=== PATIENT | female | born 1935 | race Caucasian/White ===

== ENCOUNTER 2017-02-03 09:45 | Day surgery (SDC) | payer MEDICARE, OTHER ==
[~2017-02-03 09:45] MED LIST: CHONDR SU A NA/HYALUR INTRAOC KIT (SURGICARE) ONE; FENTANYL CITRATE INJ/PF 100 MCG/2 ML AMPUL ONE; KETOROLAC TROMETHAMINE 0.45% 4 DROP/0.4 ML DROPERETTE OS PRN; LIDOCAINE 1% INJ-PF (10 MG/ML) 30 ML SDV ONE; MIDAZOLAM 2 MG/2 ML INJ ONE; PHENYLEPHRINE/KETOROLAC 1%-0.3% 4 ML VIAL ONE
[2017-02-03] MEDS ORDERED: FENTANYL CITRATE INJ/PF 100 MCG/2 ML AMPUL ONE (10:09)
[2017-02-03] MEDS ORDERED: MIDAZOLAM 2 MG/2 ML INJ ONE (10:09)
[2017-02-03] MEDS: CYCLOPENTOLATE 0.2%/PHENYLEPHRINE 1% OPH SOLN 2 ML OS PRN ×3 (10:10→10:28)
[2017-02-03] MEDS: TROPICAMIDE 1% OPH SOLN 3 ML OS PRN ×3 (10:10→10:28)
[2017-02-03] MEDS: TETRACAINE HCL 0.5% OPH SOLN 2 ML OS PRN ×3 (10:10→10:41)
[2017-02-03] MEDS: BESIFLOXACIN HCL 0.6% OPH SUSP 5 ML BOTTLE OS PRN ×3 (10:10→11:15)
--- NOTE | 2017-02-04 08:08 | [facility]GICARE OPERATIVE REPORT E ---
[facility] NAME: MIRELLA NICHOLS AGE: 81Y DATE OF SURGERY: 02/03/2017 ROOM: PREOPERATIVE DIAGNOSES: 1. Cataract, left eye. 2. Pupil myosis, left eye. POSTOPERATIVE DIAGNOSES: 1. Cataract, left eye. 2. Pupil myosis, left eye. OPERATION: Complex cataract extraction with the use of Malyugin ring. SURGEON: ELDER THOMPSON M.D. ANESTHESIA: Topical. PROCEDURE: After obtaining appropriate consent, the patient's left eye was prepped and draped in sterile fashion as well as the surgeon in a sterile manner and cataract surgery was started. First a paracentesis blade was used to make a small side-port incision. Viscoelastic was used to inflate the anterior chamber. Next a 2.4 mm incision was made with the paracentesis blade. A continuous capsulorrhexis incision was made using a cystotome and Utrata forceps. Following this hydrodissection was carried out to make the lens fully loose and mobile and it was rotated 90 degrees. Following this, a fekvxm-nqf-dcyszuc technique was used to phacoemulsify the lens with a CDE of 24.43. The remaining cortex was removed with irrigation/aspiration. Provisc was instilled into the capsular bag to inflate the bag. A SN60WF, 22.5 diopter lens was placed. The remaining viscoelastic material was removed with irrigation/aspiration. Following this, a 10-0 nylon suture was used to close the incision and it was found to be watertight. Vigamox was instilled in the eye and a protective shield was placed over the eye. The patient returned to the postoperative recovery in stable condition. Prior to making the capsulorrhexis, a Malyugin ring was inserted due to poor pupillary dilation. This was removed at the end of the case. DICTATING PHYSICIAN: ELDER THOMPSON M.D. [id number] PHY#: [id number] ID: [id number] JOB#: [id number] ACCT: [id number] cc:ELDER THOMPSON M.D. >
--- NOTE | 2017-02-04 08:13 | SURGICARE DISCHARGE SUMMARY E ---
[facility] Discharge Summary NAME: MIRELLA NICHOLS AGE: 81Y ADMITTED: 02/03/2017 DISCHARGED: 02/03/2017 HISTORY: This is an 81-year-old female who underwent complex cataract extraction with IOL of the left eye. DIAGNOSES: 1. Cataract, left eye. 2. Pupil myosis of the left eye requiring a Malyugin ring. HOSPITAL COURSE: Patient underwent surgery because she was having difficulty reading small print. DISCHARGE INSTRUCTIONS: She should be on a regular diet. No bending at her waist, no heavy lifting. She should use her Besivance, Ilevro, and Durezol at 3 p.m. and 8 p.m. and sleep with a rigid shield, and I will see her for one day postoperative tomorrow. DICTATING PHYSICIAN: ELDER THOMPSON M.D. [id number] PHY#: [id number] ID: [id number] JOB#: [id number] ACCT: [id number] cc:ELDER THOMPSON M.D. >
== END 2017-02-03 12:04 | disposition home or self-care (01) ==
LOC: SC 09:45
PROVIDERS: ATTEND Internal Medicine
PROC: 08RK3JZ Replacement of Left Lens with Synthetic Substitute, Percutaneous Approach (ICD-10-PCS; principal; 2017-02-03 11:00)
DX: H25.12 Age-related nuclear cataract, left eye (principal); H57.03 Miosis; I10 Essential (primary) hypertension; E78.00 Pure hypercholesterolemia, unspecified; M19.90 Unspecified osteoarthritis, unspecified site; E11.9 Type 2 diabetes mellitus without complications; G47.30 Sleep apnea, unspecified; I25.2 Old myocardial infarction; Z79.4 Long term (current) use of insulin; Z87.440 Personal history of urinary (tract) infections
CPT/HCPCS: 66982; 82962; V2632; J2250; J3490 ×2; A9270; J3010; C9447; 142

== ENCOUNTER 2019-03-06 14:16 | Emergency (ER) | payer MEDICARE, OTHER ==
[2019-03-06] MEDS ORDERED: NORMAL SALINE 1000 ML 1,000 ML IV ONE (15:36)
[2019-03-06] MEDS ORDERED: ONDANSETRON HCL INJ/PF 4 MG/2 ML SDV IV ONE (15:37)
[2019-03-06] MEDS ORDERED: MORPHINE SULFATE 10 MG/ML INJ IV ONE (15:37)
[2019-03-06 16:08] LABS: ABSOLUTE EOSINOPHILS # (AUTO) 0.1 10^3/uL (0.0-0.6); ABSOLUTE LYMPHOCYTES (AUTO) 1.3 10^3/uL (0.5-4.7); ABSOLUTE MONOCYTES (AUTO) 0.8 10^3/uL (0.1-1.4); ABSOLUTE NEUT (AUTO) 5.3 10^3/uL (1.7-8.2); BASOPHILS % (AUTO) 0.5 % (0-2); EOSINOPHILS % (AUTO) 0.9 % (0-6); HEMATOCRIT 40.7 % (36.0-47.0); HEMOGLOBIN 13.7 g/dL (12.0-15.5); LYMPHOCYTES % (AUTO) 17.3 % (13-45); MEAN CORPUSCULAR HEMOGLOBIN 31.1 pg (27.0-33.4); MEAN CORPUSCULAR HGB CONC 33.7 g/dL (32.0-36.0); MEAN CORPUSCULAR VOLUME 92 fl (80-97); MONOCYTES % (AUTO) 11.2 % (3-13); PLATELET COUNT 242 10^3/uL (150-450); RED CELL DISTRIBUTION WIDTH 14.1 % (11.5-14.0); SEGMENTED NEUTROPHILS % (AUTO) 70.1 % (42-78); TOTAL CELLS COUNTED % (AUTO) 100 %; WHITE BLOOD COUNT 7.5 10^3/uL (4.0-10.5)
[2019-03-06 16:22] LABS: ALBUMIN 3.7 g/dL (3.5-5.0); ALKALINE PHOSPHATASE 343 U/L (38-126); ANION GAP 10 (5-19); ASPARTATE AMINO TRANSFERASE 26 U/L (14-36); BILIRUBIN,DIRECT 0.2 mg/dL (0.0-0.4); BILIRUBIN,TOTAL 0.8 mg/dL (0.2-1.3); BLOOD UREA NITROGEN 21 mg/dL (7-20); CALCIUM 9.3 mg/dL (8.4-10.2); CARBON DIOXIDE 26 mmol/L (22-30); CHLORIDE 95 mmol/L (98-107); GLUCOSE 143 mg/dL (75-110); POTASSIUM 4.7 mmol/L (3.6-5.0); TOTAL PROTEIN 6.4 g/dL (6.3-8.2)
--- NOTE | 2019-03-06 17:57 | ER Document Report ---
ED Fall - General Chief Complaint: Nausea Stated Complaint: PAIN FROM FALL Time Seen by Provider: 03/06/19 15:17 Primary Care Provider: LALIT SAMAYOA MD [Primary Care Provider] - Follow up as needed TRAVEL OUTSIDE OF THE [place] IN LAST 30 DAYS: No - HPI Notes: [facility]. Patient has been at the facility for proxy 1 month. She states that she went there after a fall at home. She states after the fall at home she was in such severe pain in her coccyx and low back area but she was not able to take care of herself so she has been staying there. Apparently the staff there states that over the weekend patient was not eating well and they are worried about her having weight loss and deterioration. So they asked her to come the emergency department for evaluation. She states she also has a history of gallstones and intermittently causing some problems and she feels lately that they have been causing pain which is why she has not been eating. She states the pain in her lower back and sacral area is constant and worse with movement. It radiates into both legs. It is better with rest. It is a sharp pain and it is moderate to severe. She has some upper abdominal vague discomfort as well. - Related data Allergies/Adverse Reactions: No Known Allergies Allergy (Verified 02/03/17 10:18) Past Medical History - General Information source: Patient - Social History Smoking Status: Never Smoker Frequency of alcohol use: None Drug Abuse: None Family History: Reviewed & Not Pertinent Patient has suicidal ideation: No Patient has homicidal ideation: No - Past Medical History Cardiac Medical History: Reports: Hx Atrial Fibrillation - Paroxysmal atrial fibrillation, Hx Congestive Heart Failure, Hx Heart Attack - 01/2013, Hx Hypercholesterolemia, Hx Hypertension - medicated Pulmonary Medical History: Denies: Hx Asthma, Hx Tuberculosis Neurological Medical History: Denies: Hx Cerebrovascular Accident, Hx Seizures Endocrine Medical History: Reports: Hx Diabetes Mellitus Type 2 Renal/ Medical History: Reports: Hx Renal Insufficiency GI Medical History: Denies: Hx Hepatitis, Hx Hiatal Hernia, Hx Ulcer Musculoskeletal Medical History: Reports Hx Arthritis Psychiatric Medical History: Reports: Hx Anxiety Denies: Hx Depression Infectious Medical History: Denies: Hx Hepatitis Past Surgical History: Reports: Hx Cardiac Surgery - 03-19-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 Denies: Hx Mastectomy - Immunizations Hx Diphtheria, Pertussis, Tetanus Vaccination: Yes Review of Systems - Review of Systems Constitutional: Malaise, Weakness. denies: Chills, Fever Cardiovascular: denies: Chest pain, Palpitations Respiratory: denies: Cough, Short of breath -: Yes All other systems reviewed and negative Physical Exam - Vital signs Vitals: Temp Pulse Resp BP Pulse Ox 97.7 F 80 16 115/63 96 03/06/19 14:50 03/06/19 14:50 03/06/19 14:50 03/06/19 14:50 03/06/19 14:50 Interpretation: Normal - General General appearance: Appears well, Alert In distress: None - HEENT Head: Normocephalic, Atraumatic Eyes: Normal Pupils: PERRL - Respiratory Respiratory status: No respiratory distress Chest status: Nontender Breath sounds: Normal Chest palpation: Normal - Cardiovascular Rhythm: Regular Heart sounds: Normal auscultation Murmur: No - Abdominal Inspection: Normal Distension: Distended Bowel sounds: Normal Tenderness: Tender - Abdomen is diffusely tender to palpation. There is no rebound or guarding. Organomegaly: No organomegaly - Back Back: Normal, Nontender - Extremities General upper extremity: Normal inspection, Nontender, Normal color, Normal ROM, Normal temperature General lower extremity: Normal inspection, Nontender, Normal color, Normal ROM, Normal temperature, Normal weight bearing. No: Eben's sign - Neurological Neuro grossly intact: Yes Cognition: Normal Orientation: AAOx4 [place] Coma Scale Eye Opening: Spontaneous Zo Coma Scale Verbal: Oriented [place] Coma Scale Motor: Obeys Commands Zo Coma Scale Total: 15 Speech: Normal Motor strength normal: LUE, RUE, LLE, RLE Sensory: Normal - Psychological Associated symptoms: Normal affect, Normal mood - Skin Skin Temperature: Warm Skin Moisture: Dry Skin Color: Normal Course - Re-evaluation Re-evalutation: 03/06/19 18:48 at this time ua, ct, xray pending. Dr. nguyen will follow up and determine dispo - Vital Signs Vital signs: Temp Pulse Resp BP Pulse Ox 97.7 F 80 16 115/63 96 03/06/19 14:50 03/06/19 14:50 03/06/19 14:50 03/06/19 14:50 03/06/19 14:50 - Laboratory Result Diagrams: 03/06/19 14:42 03/06/19 14:42 Laboratory results interpreted by me: 03/06/19 03/06/19 14:42 14:42 RDW 14.1 H Sodium 131.4 L Chloride 95 L BUN 21 H Creatinine 1.34 H Est GFR ( Amer) 46 L Est GFR (MDRD) Non-Af 38 L Glucose 143 H Alkaline Phosphatase 343 H Discharge - Discharge Clinical Impression: Sacral pain Abdominal pain Qualifiers: Abdominal location: upper abdomen, unspecified Qualified Code(s): R10.10 - Upper abdominal pain, unspecified Condition: Stable Disposition: OTHER Referrals: LALIT SAMAYOA MD [Primary Care Provider] - Follow up as needed
--- NOTE | 2019-03-06 18:38 | RADIOLOGY REPORT (SQ) ---
EXAM DESCRIPTION: SACRUM AND COCCYX COMPLETED DATE/TIME: 03/06/2019 5:24 pm REASON FOR STUDY: abd pain vomiting COMPARISON: None. NUMBER OF VIEWS: Three views. TECHNIQUE: AP, lateral, and tilt views of the sacrum and coccyx. LIMITATIONS: None. FINDINGS: MINERALIZATION: Osteopenia. BONES: No acute fracture or dislocation. No worrisome bone lesions. SOFT TISSUES: No soft tissue swelling. No foreign body. OTHER: No other significant finding. IMPRESSION: NEGATIVE STUDY OF THE SACRUM AND COCCYX. TECHNICAL DOCUMENTATION: JOB ID: [id number] [employer]- All Rights Reserved Reading location - IP/workstation name: [email or web address]
--- NOTE | 2019-03-06 18:42 | RADIOLOGY REPORT (SQ) ---
EXAM DESCRIPTION: CT ABD/PELVIS NO ORAL OR IV COMPLETED DATE/TIME: 03/06/2019 5:46 pm REASON FOR STUDY: abd pain vomiting COMPARISON: None. TECHNIQUE: CT scan of the abdomen and pelvis performed without intravenous or oral contrast. Images reviewed with lung, soft tissue, and bone windows. Reconstructed coronal and sagittal MPR images revi ewed. All images stored on PACS. All CT scanners at this facility use dose modulation, iterative reconstruction, and/or weight based d osing when appropriate to reduce radiation dose to as low as reasonably achievable (ALARA). [facility]: Dose Right [facility]: CareDose [facility]: Dose Right [facility]: Teradose 4D [facility]: Smart [employer] RADIATION DOSE: CT Rad equipment meets quality standard of care and radiation dose reduction techniq ues were employed. CTDIvol: 17.5 mGy. DLP: 1003 mGy-cm.mGy. LIMITATIONS: None. FINDINGS: LOWER CHEST: No significant findings. No nodules or infiltrates. NON-CONTRASTED LIVER, SPLEEN, ADRENALS: Evaluation limited by lack of IV contrast. No identified sign ificant masses. PANCREAS: No masses. No peripancreatic inflammatory changes. GALLBLADDER: Small gallstones are present. There is no ductal dilatation. RIGHT KIDNEY AND URETER: No suspicious masses. Assessment limited by lack of IV contrast. No signif icant calcifications. No hydronephrosis or hydroureter. LEFT KIDNEY AND URETER: No suspicious masses. Assessment limited by lack of IV contrast. No signifi cant calcifications. No hydronephrosis or hydroureter. AORTA AND RETROPERITONEUM: No aneurysm. No retroperitoneal masses or adenopathy. BOWEL AND PERITONEAL CAVITY: No obvious masses or inflammatory changes. No free fluid. APPENDIX: Normal. PELVIS, BLADDER, AND ABDOMINAL WALL:No abnormal masses. No free fluid. Bladder normal. BONES: No significant findings. OTHER: No other significant finding. IMPRESSION: Cholelithiasis. No other significant finding in the abdomen or pelvis. COMMENT: Quality ID # [id number]: Final reports with documentation of one or more dose reduction techniques (e.g., Automated exposure control, adjustment of the mA and/or kV according to patient size, use of iterative reconstruction technique) TECHNICAL DOCUMENTATION: JOB ID: [id number] [employer]- All Rights Reserved Reading location - IP/workstation name: [email or web address]
[2019-03-06] MEDS ORDERED: ACETAMINOPHEN 325 MG TABLET PO ONE (19:49)
--- NOTE | 2019-03-06 20:28 | ER Document Report ---
Doctor's Note Notes: 03/06/19 20:25 accepted pt at [address] a/p for abdominal pain and x-ray sacrum for pain. CT showed gallstones w/o overt ductal dilation or arun-pancreatic or RUQ inflammation or findings. They report they were able to see the biliary duct system & the appendix which was WNL. X-ray was also reported as within normal limits. reviewed patient's labs and compared to her recent trends there is no change in her CBC with differential or her renal function. Still pending the urine she has not had any urine taken since a few years now. this result not suggestive of uti. pt cont to have requests for pain meds. i examined: diffuse low back ttp/pain no skin changes overying. reluctant but allowed me to passively move b/l hip through ROM. R>>L pain w/ flexion both initiation of int/ext rotation. spoke w/ rad now on-call for CT reads to specifically review lumb/sacral spine and R hip. she does not R>L sclerosis doens' tmeet criteria for ank spondylosis but does have some intermittent lum/thor sponylesthesis. thinks there very well could be a nondisplaced sacral fracture w/o ability to specify chronicty but appears likely acute or subacute. this is c/w exam and pt pain. reviewed her home pain meds. gave her another po dose here and called [facility] about findings and that she ultimately needs therapy. maybe this could qualify her for extension of therapy since pain seems to have been after she'd been participating in therapy. relayed someone will need need to call pcp office about following this up tomorrow and ensuring her eligibility is reassessed etc. 03/06/19 20:30 03/12/19 15:27
[2019-03-06 20:46] LABS: APPEARANCE,URINE SLIGHTLY-CLOUDY; BILIRUBIN,URINE NEGATIVE (NEGATIVE); COLOR,URINE YELLOW; GLUCOSE, URINE NEGATIVE (NEGATIVE); KETONES,URINE TRACE mg/dL (NEGATIVE); PROTEIN,URINE NEGATIVE (NEGATIVE); URINE SPECIFIC GRAVITY 1.012; UROBILINOGEN,URINE NEGATIVE mg/dL (<2.0)
[2019-03-06] MEDS ORDERED: KETOROLAC TROMETHAMINE INJ/PF 30 MG/1 ML SDV IV ONE (22:40)
[2019-03-06] MEDS ORDERED: HYDROMORPHONE HCL INJ/PF 2 MG/ML AMPULE IV ONE (22:45)
[2019-03-07 01:09] VITALS: BP 117/80
[2019-03-07] MEDS ORDERED: ONDANSETRON HCL INJ/PF 4 MG/2 ML SDV IV ONE (01:29)
[2019-03-07] MEDS ORDERED: HYDROMORPHONE HCL INJ/PF 2 MG/ML AMPULE IV ONE (01:29)
[2019-03-07] MEDS ORDERED: METOCLOPRAMIDE HCL INJ/PF 10 MG/2 ML SDV IV ONE (04:06)
== END 2019-03-07 04:39 | disposition other institution (70) ==
LOC: ER 14:16
DX: M53.3 Sacrococcygeal disorders, not elsewhere classified (principal); M15.9 Polyosteoarthritis, unspecified; M43.16 Spondylolisthesis, lumbar region; M43.14 Spondylolisthesis, thoracic region; M25.551 Pain in right hip; K80.20 Calculus of gallbladder without cholecystitis without obstruction; R10.817 Generalized abdominal tenderness; M54.5 Low back pain; R53.81 Other malaise; R53.1 Weakness; I10 Essential (primary) hypertension; E11.9 Type 2 diabetes mellitus without complications
CPT/HCPCS: 96376; 99285; 96361; 51701; 96374; 96375; 36415; 85025; 87070; 80048; 81001; 72220; 74176; A9270; J1885; J2765; J2270; J1170 ×2; J2405 ×2; J7030

== ENCOUNTER → 2019-03-26 | Outpatient (CLI) | payer MEDICARE, OTHER ==
--- NOTE | 2019-03-26 09:42 | RADIOLOGY REPORT (SQ) ---
EXAM DESCRIPTION: NM HIDA SCAN COMPLETED DATE/TIME: 03/26/2019 9:30 am REASON FOR STUDY: GALLSTONE (K80.20) K80.20 CALCULUS OF GALLBLADDER W/O CHOLECYSTITIS W/O OBSTRUC COMPARISON: None. RADIONUCLIDE AND DOSE: DOSAGE RADIONUCLIDE: 5.26 millicuries Tc99m Mebrofenin. DOSAGE MORPHINE: Not required. The route of agent administration: Intravenous TECHNIQUE: Serial imaging right upper quadrant up to 60 minutes following injection of radionuclide. Patient imaged AP and Right Lateral. LIMITATIONS: None. FINDINGS: LIVER: Normal visualization without areas of photopenia. INTRA-HEPATIC BILE DUCTS: Temporal visualization normal. No dilatation. COMMON BILE DUCT: Normal without dilatation or delayed visualization. GALLBLADDER: Normal visualization. OTHER: No other significant finding. IMPRESSION: NORMAL STUDY WITHOUT CYSTIC OR COMMON DUCT OBSTRUCTION. TECHNICAL DOCUMENTATION: JOB ID: [id number] [employer]- All Rights Reserved Reading location - IP/workstation name: [email or web address]
== END ==
LOC: RAD 03-13 08:15
PROVIDERS: ATTEND Family Medicine
DX: K80.20 Calculus of gallbladder without cholecystitis without obstruction (principal)
CPT/HCPCS: 78226; A9537; Q9969

== ENCOUNTER → 2019-05-11 | Outpatient (CLI) | payer MEDICARE, OTHER | LOC: PNR 11:58 | PROVIDERS: ATTEND Nurse Practitioner Family | DX: J02.0 Streptococcal pharyngitis (principal) | CPT/HCPCS: 87070 ==